=== PATIENT | male | born 1945 | race American Indian/Alaskan Native ===

== ENCOUNTER 2017-09-14 06:36 | Day surgery (SDC) | payer MEDICARE ==
[2016-11-10 07:48] VITALS: BMI 35.4
[2017-09-14 07:23] VITALS: O2SAT 100
--- NOTE | 2017-09-14 08:00 | CP.SDSHP ---
Same Day Surgery H & P - History Proposed Procedure: COLONSCOPY Pre-Op Diagnosis: SEE NOTES - Previous Medical/Surgical History Cardiac: Hypertension, ASHD/CAD Endocrine/Metabolic: Other Misc: Other Pain: 2.Mild Pain - Allergies Allergies: Allergies No Known Allergies Allergy (Unverified 09/14/17 07:06) - Physical Exam General Appearance: N Vital Signs: Vital Signs 09/14/17 06:50 Temperature 97.8 F Pulse Rate 66 Respiratory 19 Rate Blood Pressure 128/62 O2 Sat by Pulse 100 Oximetry Mental Status: Alert & Oriented x3 Neuro: WNL Heart: Other Lungs: WNL GI: WNL - {Optional Preform as Required} Breast: WNL Abdomen: Other Rectal: Other Integument: WNL : WNL Ortho: WNL ENT: WNL - Impression Pt. Evaluated Today:Candidate for Anesthesia & Procedure: Yes - Date & Time Time: 08:00 Short Stay Discharge - Short Stay Discharge Admitting Diagnosis/Reason for Visit: SCREENING Disposition: HOME/ ROUTINE
[2017-09-14] MEDS ORDERED: Propofol 10 mg/ml Inj (20 ML) ONE (08:16)
[2017-09-14] MEDS ORDERED: Belladonna-Phenobarbital PO ONE (09:05)
[2017-09-14 09:41] VITALS: BP 126/61; PULSE 60; RESP 16; TEMP 97
== END 2017-09-14 09:35 | disposition home or self-care (01) ==
LOC: C.ENDO 06:36
PROVIDERS: ATTEND Specialist
DX: K57.90 Diverticulosis of intestine, part unspecified, without perforation or abscess without bleeding (principal); K64.4 Residual hemorrhoidal skin tags; K64.8 Other hemorrhoids
CPT/HCPCS: 45380; 82948; 88305; J2704

== ENCOUNTER → 2017-11-24 | Day surgery (SDC) | payer MEDICARE ==
[2016-11-10 07:48] VITALS: BMI 35.4
--- NOTE | 2017-11-25 07:44 | CARDCATH ---
PROCEDURE DATE: 11/24/2017 The patient was brought into the roofing laborer for fluoroscopy of his RV defibrillator lead. Cine was performed slowly on the RV defibrillator lead, which showed the lead to be intact without any insulation break or externalization of his [employer] defibrillator lead. No complications occurred. CONCLUSION: Intact [employer] defibrillator lead without any mechanical break of the insulation. [place] [address] Health Information Management Cardiac Tower Supervisor : [id number] Patient Name: , : Age/Sex: / F Loc: ADM Status: Unit: Room/Bed: ADM Date: DIS Date: Copied To: Sadaf Fernandez MD Attending MD: Sadaf Fernandez MD PROCEDURE DATE: The patient was brought into the roofing laborer for fluoroscopy of his RV defibrillator lead. Cine was performed slowly on the RV defibrillator lead, which showed the lead to be intact without any insulation break or externalization of his [employer] defibrillator lead. No complications occurred. CONCLUSION: Intact [employer] defibrillator lead without any mechanical break of the insulation. Sadaf Fernandez MD
== END | disposition home or self-care (01) ==
LOC: C.SDS 08:15 → C.CATHLAB 08:15
PROVIDERS: ATTEND Internal Medicine Cardiovascular Disease
DX: Z45.02 Encounter for adjustment and management of automatic implantable cardiac defibrillator (principal)